=== PATIENT | female | born 1990 | race Caucasian/White ===

== ENCOUNTER → 2023-12-17 09:46 | Outpatient (REF) | payer OTHER, SELFPAY | LOC: HWRAD 09:46 | PROVIDERS: ATTENDING PHYSICIAN Physician Assistant | DX: R10.2 Pelvic and perineal pain (principal) | CPT/HCPCS: 76830; 76856 ==

== ENCOUNTER → 2024-03-30 07:48 | Outpatient (REF) | payer OTHER, SELFPAY | LOC: HWRAD 07:48 | PROVIDERS: ATTENDING PHYSICIAN Physician Assistant | DX: R19.04 Left lower quadrant abdominal swelling, mass and lump (principal) | CPT/HCPCS: 76705 ==

== ENCOUNTER 2024-04-13 07:27 | Emergency (ER) | payer OTHER, SELFPAY ==
[2024-04-13 07:31] VITALS: BP 165/101
[2024-04-13] MEDS: XANAX 1 MG PO (09:02)
[2024-04-13] MEDS: NSS 1000 IV (09:03)
[2024-04-13 09:08] LABS: % Basophils 0.3 % (0-2); % Eosinophils 0.3 % (0-6); % Immature Granulocytes 0.1 % (0-0.5); % Lymphocytes 19.7 % (20.5-51.1); % Monocytes 5.3 % (1.7-9.3); % Neutrophils 74.3 % (42.2-75.2); Absolute Lymphocytes 1.8 10^3/uL (1.2-3.4); Absolute Monocytes 0.5 10^3/uL (0.1-0.6); Absolute Neutrophils 6.9 10^3/uL (1.4-6.5); Hematocrit 38.8 % (37.0-47.0); Mean Corp Hgb Conc. 33.5 g/dL (33.0-37.0); Mean Corpuscular Hgb 27.1 pg (27.0-31.0); Mean Platelet Volume 9.9 fL (7.4-10.4); Nucleated Red Blood Cells % 0 %; Platelet Count 353 10^3/uL (130-400); Red Blood Cell Count 4.79 10^6/uL (4.20-5.40); Red Cell Dist. Width 12.5 % (11.5-14.5); White Blood Cell Count 9.3 10^3/uL (4.8-10.8)
[2024-04-13 09:26] LABS: HCG, Serum Qualitative Screen Negative
[2024-04-13 09:28] LABS: ALT (SGPT) 33 U/L (0-35); AST (SGOT) 30 U/L (14-36); Albumin 4.1 g/dl (3.5-5.0); Alkaline Phosphatase 91 U/L (38-126); Blood Urea Nitrogen 7 mg/dl (7-17); Calcium 9.7 mg/dl (8.4-10.2); Carbon Dioxide 24 mmol/L (22-30); Chloride 104 mmol/L (98-107); Glucose 109 mg/dl (70-99); Potassium 3.9 mmol/L (3.5-5.1); Sodium 139 mmol/L (135-145); Total Bilirubin 0.7 mg/dl (0.2-1.3); Total Protein 6.8 g/dl (6.3-8.2); eGFR > 60.00
--- NOTE | 2024-04-13 09:53 | ED.GENMED ---
History of Present Illness
General
Chief Complaint: Anxiety
Source: patient and spouse
Exam Limitations: none
Time Seen by Provider: 04/13/24 08:38
Nursing documentation reviewed up to this point in time: agreed with
History of Present Illness
History of Present Illness:
33-year-old female long history of anxiety presenting to the emergency department today with concerns of anxiety has had nausea associated with it. Stopped her Zoloft 4 months ago has had significant worsening of anxiety since. Over the past week
or so she has had increasingly worsening symptoms after her parakeet became sick. She tried taking Ativan at home with some mild improvement. Denies any chest pain shortness of breath fevers or recent illness she denies any thoughts of harming
herself or others.
Past History
Past History
ED Past Medical History: None and Other (Recurrent urticaria)
ED Past Surgical History: None
Social History
Tobacco: Non-smoker
Alcohol: None
Drug: None
Personal:
Living: with family
Employment: Employed
Family History
Family History: Other (Noncontributory)
Review of Systems
Review of Systems
Allergies reviewed?: Yes
All Other Systems: ROS reviewed and negative except as documented in HPI and ROS
Phy Exam
Physical Exam
Physical Exam:
GENERAL: Alert , in no apparent distress
EYE: pupils equal and reactive
NECK: Supple, no significant adenopathy.
ENT: o/p clr, mmm.
CARDIAC: Regular rate and rhythm .
LUNGS: Clear breath sounds bilaterally, no acute respiratory distress, no wheezes/rales/rhonchi
ABDOMEN: Soft, without focal tenderness, no r/g, no cvat
NEUROLOGICAL: Alert and oriented, no focal neuro deficits
SKIN: Warm and dry, skin intact.
MUSCULOSKELETAL: No edema, well perfused.
PSYCH: Normal and appropriate interaction.
Course
Orders/Labs/Results
Orders:
Orders
04/13/24 08:39
Crisis Consult Urgent
Reason for Consult: severe anxiety
Alprazolam [Xanax] 1 mg PO NOW STA
04/13/24 08:40
0.9% Sodium Chloride 1000 ml [Nss] 1,000 ml IV BOLUS
Test Result ONCE
04/13/24 09:00
Beta Hcg Serum Qualitative Screen [HCG, Serum Qualitative Screen] Urgent
CBC/With Diff [Complete Blood Count/With Diff] Urgent
CMP [Comprehensive Metabolic Panel] Urgent
Abnormal Lab Results
04/13/24
09:00
Absolute Neuts (auto) 6.9 H 10^3/uL
(1.4-6.5)
Lymphocytes % 19.7 L %
(20.5-51.1)
Glucose 109 H mg/dl
(70-99)
04/13/24 09:00
04/13/24 09:00
Vital Signs
Initial and Last Documented VS:
Initial Vital Signs
Temp Pulse Resp BP Pulse Ox
99.1 F 93 16 165/101 98
04/13/24 07:31 04/13/24 07:31 04/13/24 07:31 04/13/24 07:31 04/13/24 07:31
Last Documented Vital Signs
Temp Pulse Resp BP Pulse Ox
99.1 F 93 16 165/101 98
04/13/24 07:31 04/13/24 07:31 04/13/24 07:31 04/13/24 07:31 04/13/24 07:31
MDM/Problems Addressed
MDM/Problems Addressed:
33-year-old female presenting to the emergency department today with concerns of anxiety worsening over the past 4 months since stopping her Zoloft. No psychiatrist follow-up. Took Ativan prior to arrival. Upon arrival hypertensive but otherwise
no obvious distress. She does appear anxious and is tearful on exam. Speech is somewhat pressured. Physical examination without emergent findings. Labs obtained considering she clear she has been eating and drinking less which were normal. She
was given a dose of Xanax. Symptoms significantly improved. Patient was seen by crisis to help navigate outpatient follow-up patient does not meet any 302 criteria. Plan for outpatient management written for a few doses of benzodiazepine bridge
until psychiatric follow-up. Return precautions given.
*Critical Care Note
Total Time (30-74mins, 75-104mins- exclusive of procedures): Not Applicable
ED Attending Note
-
Portions of this chart may have been created with voice recognition software.� Occasional wrong word or��sound alike� substitutions may have occurred due to the inherent limitations of voice recognition software.
Discharge Plan
Departure
Patient Disposition: Home (Routine Discharge)
Date of Disposition: 04/13/24
Time of Disposition: 10:29
Patient with high blood pressure during this ER visit?: No
Condition: Good
Covid-19: Not Applicable
Discharge Problem:
Anxiety
Instructions: Anxiety, Adult (DC)
Prescriptions:
New
diazepam [Valium] 5 mg tablet
5 mg PO Q8H PRN (Reason: anxiety) Qty: 10 0RF
No Action
cetirizine [Zyrtec] 5 MG tablet
10 mg PO DAILY
sertraline 25 MG tablet
50 mg PO HS
norgestimate-ethinyl estradiol [Tri-Linyah] 1 EACH tablet
1 ea PO DAILY
prednisone 10 MG tablet
10 mg PO .TAPER Qty: 30 0RF
Rx Instructions:
Take 40mg daily x3days, 30mg daily x3days,
20mg daily x3days, 10mg daily x3days.
oseltamivir 75 MG capsule
75 mg PO BID Qty: 9 0RF
prednisone 10 MG tablet
10 mg PO .TAPER Qty: 30 0RF
Rx Instructions:
Take 40mg daily x3days, 30mg daily x3days,
20mg daily x3days, 10mg daily x3days.
prednisone 20 mg tablet
40 mg PO DAILY Qty: 8 0RF
albuterol sulfate [ProAir HFA] 90 mcg/actuation HFA aerosol inhaler
2 inh inhalation Q6H PRN (Reason: shortness of breath or wheezing) Qty: 8.5 0RF
Referrals:
Alberto Jang MD [Family Provider] -
Activity Restrictions/Additional Instructions:
You came to the emergency department today with concerns of anxiety. Please take the prescribed occasions once twice daily as needed until follow-up with psychiatry for further to the emergency department for any worsening, new or concerning
symptoms.
Interventions
Interventions:
*Risk Screen - Suicide Last Done: 04/13/24 07:34
ED-Psychological Assessment Last Done: 04/13/24 07:34
Discharge Date and Time
Print Language: JAPANESE
[2024-04-13 10:59] VITALS: BP 145/83
== END 2024-04-13 11:03 | disposition home or self-care (01) ==
LOC: EMR 07:27
PROVIDERS: Physician Assistant; EMERGENCY PHYSICIAN Student in an Organized Health Care Education/Training Program; FAMILY PHYSICIAN Family Medicine
DX: F41.9 Anxiety disorder, unspecified (principal); R11.0 Nausea; Z91.148 Patient's other noncompliance with medication regimen for other reason; F32.A Depression, unspecified
CPT/HCPCS: 99284; 96360; 80053; 84703; 85025

== ENCOUNTER → 2024-08-02 08:51 | Outpatient (REF) | payer OTHER, SELFPAY | LOC: WDC 08:51 | PROVIDERS: ATTENDING PHYSICIAN Physician Assistant; FAMILY PHYSICIAN Family Medicine | DX: N64.52 Nipple discharge (principal); N64.4 Mastodynia | CPT/HCPCS: 76642; 77062; 77066 ==